=== PATIENT | female | born 1940 | race Asian ===

== ENCOUNTER 2016-11-26 18:47 | Inpatient (IN) | payer MEDICARE ==
[~2016-11-26] VITALS: Ht 157.5 cm; Wt 53.5 kg
[2016-11-26 19:15] VITALS: BP 103/75
[2016-11-26 20:31] LABS: BASOPHILS % (AUTO) 0.8 % (0.0-2.0); LYMPHOCYTES % (AUTO) 15.4 % (20.0-45.0); MEAN CORPUSCULAR HEMOGLOBIN 31.8 PG (27.0-31.0); MEAN CORPUSCULAR HGB CONC 33.5 G/DL (32.0-36.0); MEAN CORPUSCULAR VOLUME 95 FL (80-99); MEAN PLATELET VOLUME 6.2 FL (6.5-10.1); MONOCYTES % (AUTO) 8.4 % (1.0-10.0); NEUTROPHILS % (AUTO) 75.4 % (45.0-75.0); PLATELET COUNT 163 K/UL (150-450); RED BLOOD COUNT 3.82 M/UL (4.20-5.40); RED CELL DISTRIBUTION WIDTH 11.4 % (11.6-14.8)
[2016-11-26 20:34] LABS: TROPONIN I < 0.30 ng/mL (<=0.30)
[2016-11-26 20:37] LABS: ALANINE AMINOTRANSFERASE 24 U/L (3-33); ALBUMIN/GLOBULIN RATIO 0.9 (1.0-2.7); ANION GAP 18 (5-15); ASPARTATE AMINO TRANSFERASE 28 U/L (5-40); CALCIUM 8.4 mg/dL (8.6-10.2); CARBON DIOXIDE 23 mEQ/L (20-30); CHLORIDE 104 mEQ/L (98-107); CREATININE 0.6 mg/dL (0.5-0.9); HEMOLYSIS 13; POTASSIUM 3.4 mEQ/L (3.4-4.9); SODIUM 145 mEQ/L (135-145)
[2016-11-26 20:47] LABS: CKMB 5.2 ng/mL (< 3.8)
[2016-11-26 20:59] LABS: APPEARANCE,URINE SLIGHTLY CLOUDY; KETONES,URINE 2+ (NEGATIVE); LEUKOCYTE ESTERASE ,URINE 3+ (NEGATIVE); NITRITE,URINE NEGATIVE (NEGATIVE); PH,URINE 5 (4.5-8.0); PROTEIN,URINE 2+ (NEGATIVE); UROBILINOGEN,URINE 4 MG/DL (0.0-1.0)
[2016-11-26 21:18] LABS: RBC,URINE 0-2 /HPF (0 - 2)
[2016-11-26 21:19] LABS: SQUAMOUS EPITHELIAL CELL,UR FEW /LPF (NONE/OCC)
[2016-11-26 21:20] LABS: BACTERIA,URINE MODERATE /HPF; MUCUS,URINE MANY /LPF (NONE/OCC)
[2016-11-26] MEDS ORDERED: DuoNeb 0.5-3(2.5)mg/3ml neb HHN PRN (21:45)
[2016-11-26] MEDS ORDERED: Morphine Sulfate 2mg/ml Inj IVP PRN (21:45)
[2016-11-26] MEDS ORDERED: Mylanta II UD 30ml ORAL PRN (21:45)
[2016-11-26] MEDS ORDERED: LORazepam Inj 2mg/ml 1ml IV PRN (21:45)
[2016-11-26] MEDS ORDERED: Promethazine/Codeine 5ml UD ORAL PRN (21:45)
[2016-11-26] MEDS ORDERED: Nitroglycerin Subl 0.4mg tab (Bottle Of 25) SL PRN (21:45)
[2016-11-26] MEDS ORDERED: Miralax 17gm pkt ORAL PRN (21:45)
[2016-11-26] MEDS ORDERED: GLIMEPIRIDE1 MG ORAL (22:11)
[2016-11-26] MEDS ORDERED: RISPERIDONE0.5 MG PO (22:11)
[2016-11-26] MEDS ORDERED: ZOLPIDEM TARTRAT5 MG ORAL (22:11)
[2016-11-26] MEDS ORDERED: JANUMET 50-5001 EACH ORAL (22:11)
[2016-11-26] MEDS ORDERED: NAMENDA10 MG ORAL (22:11)
[2016-11-26] MEDS ORDERED: METFORMIN HCL500 M1 ORAL (22:11)
[2016-11-26] MEDS ORDERED: ANTI-DIARRHEA2 MG PO (22:11)
[2016-11-26] MEDS ORDERED: DONEPEZIL HCL5 M2 ORAL (22:11)
--- NOTE | 2016-11-26 22:59 | Emergency Room Report ---
History of Present Illness General Chief Complaint: Altered Level of Consciousness Source: Medical Record, EMS Present Illness HPI 76-year-old female presents to ED for evaluation of altered mental status. Per correction patient is more altered than usual since this morning. On arrival patient is unable to provide any additional history at this time. No reported fevers or chills. No reported chest pain or shortness of breath. No for nausea or vomiting. No aggravating relieving factors. No other associated symptoms Allergies: Coded Allergies: No Known Allergies (Unverified , 11/26/16) Patient History Past Medical History: DM, HTN Past Surgical History: none Pertinent Family History: none Social History: Denies: alcohol use, drug use, smoking Last Menstrual Period: N/A Now: No Immunizations: UTD Reviewed Nursing Documentation: PMH: Agreed, PSxH: Agreed Nursing Documentation-PMH Past Medical History: No History, Except For Hx Hypertension: Yes Hx Diabetes: Yes Review of Systems All Other Systems: limited Physical Exam Vital Signs Date Time Temp Pulse Resp B/P Pulse Ox O2 Delivery O2 Flow Rate FiO2 11/26/16 18:53 98.4 105 16 124/72 98 Room Air Sp02 EP Interpretation: reviewed, normal General Appearance: no apparent distress, non-toxic, lethargic Head: normocephalic, atraumatic Eyes: bilateral eye PERRL, bilateral eye normal inspection ENT: hearing grossly normal, normal pharynx, no angioedema, normal voice Neck: full range of motion, supple/symm/no masses Respiratory: chest non-tender, lungs clear, normal breath sounds, speaking full sentences Cardiovascular #1: regular rate, rhythm, no edema Cardiovascular #2: 2+ carotid (R), 2+ carotid (L), 2+ radial (R), 2+ radial (L) , 2+ dorsalis pedis (R), 2+ dorsalis pedis (L) Gastrointestinal: normal bowel sounds, non tender, soft, non-distended, no guarding, no rebound Rectal: deferred Genitourinary: normal inspection, no CVA tenderness Musculoskeletal: back normal, non-tender, calf tenderness Neurologic: other - ams Psychiatric: other - ams Reflexes: 3+ bicep (R), 3+ bicep (L), 3+ tricep (R), 3+ tricep (L), 3+ knee (R) , 3+ knee (L) Skin: normal color, no rash, warm/dry, well hydrated Lymphatic: no adenopathy Medical Decision Making Diagnostic Impression: Primary Impression: UTI (urinary tract infection) Qualified Codes: N39.0 - Urinary tract infection, site not specified Additional Impression: Altered level of consciousness ER Course Hospital Course 76-year-old female presenting to ED with generalized weakness Differential diagnoses include: Pneumonia, UTI, sepsis, dehydration, DE/ unstable angina Clinical course Patient placed on stretcher. On night monitor with stable vitals are ED course. After initial history and physical, I ordered labs, IV fluids, EKG, chest x-ray, blood cultures, UA. CT Head Labs - electrolytes ok, no leukocytosis, troponins negative, UA grossly positive for UTI CXR - no acute process CT head ok EKG - no ischemic changes, NSR Abx given. Case discussed with Dr Mckeon and they agreed to admit patient to their service for further care and support I feel this is a highly complex case requiring extensive working including EKG/ Rhythm strip, Xray/CT/US, Blood/urine lab work, repeat exams while in ED, and administration of strong opiates/narcotics for pain control, admission to hospital or close patient follow up. Diagnosis - UTI, ALOC Patient admitted to floor in serious condition Labs Test 11/26/16 19:45 White Blood Count 6.0 K/UL (4.8-10.8) Red Blood Count 3.82 M/UL (4.20-5.40) Hemoglobin 12.2 G/DL (12.0-16.0) Hematocrit 36.3 % (37.0-47.0) Mean Corpuscular Volume 95 FL (80-99) Mean Corpuscular Hemoglobin 31.8 PG (27.0-31.0) Mean Corpuscular Hemoglobin Concent 33.5 G/DL (32.0-36.0) Red Cell Distribution Width 11.4 % (11.6-14.8) Platelet Count 163 K/UL (150-450) Mean Platelet Volume 6.2 FL (6.5-10.1) Neutrophils (%) (Auto) 75.4 % (45.0-75.0) Lymphocytes (%) (Auto) 15.4 % (20.0-45.0) Monocytes (%) (Auto) 8.4 % (1.0-10.0) Eosinophils (%) (Auto) 0.0 % (0.0-3.0) Basophils (%) (Auto) 0.8 % (0.0-2.0) Urine Color Yellow Urine Appearance Slightly cloudy Urine pH 5 (4.5-8.0) Urine Specific [place] 1.025 (1.005-1.035) Urine Protein 2+ (NEGATIVE) Urine Glucose (UA) Negative (NEGATIVE) Urine Ketones 2+ (NEGATIVE) Urine Occult Blood 2+ (NEGATIVE) Urine Nitrite Negative (NEGATIVE) Urine Bilirubin 1+ (NEGATIVE) Urine Ictotest Urine Urobilinogen 4 MG/DL (0.0-1.0) Urine Leukocyte Esterase 3+ (NEGATIVE) Urine RBC 0-2 /HPF (0 - 2) Urine WBC 2-4 /HPF (0 - 2) Urine Squamous Epithelial Cells Few /LPF (NONE/OCC) Urine Bacteria Moderate /HPF (NONE) Urine Mucus Many /LPF (NONE/OCC) Sodium Level 145 mEQ/L (135-145) Potassium Level 3.4 mEQ/L (3.4-4.9) Chloride Level 104 mEQ/L (98-107) Carbon Dioxide Level 23 mEQ/L (20-30) Anion Gap 18 (5-15) Blood Urea Nitrogen 26 mg/dL (7-23) Creatinine 0.6 mg/dL (0.5-0.9) Estimat Glomerular Filtration Rate mL/min (>60) Glucose Level 99 mg/dL (74-106) Lactic Acid Level 1.80 mmol/L (0.66-2.22) Calcium Level 8.4 mg/dL (8.6-10.2) Total Bilirubin 0.6 mg/dL (0.0-1.2) Aspartate Amino Transf (AST/SGOT) 28 U/L (5-40) Alanine Aminotransferase (ALT/SGPT) 24 U/L (3-33) Alkaline Phosphatase 55 U/L (35-104) Total Creatine Kinase 289 U/L (26-140) Creatine Kinase MB 5.2 ng/mL (< 3.8) Creatine Kinase MB Relative Index 1.7 Troponin I < 0.30 ng/mL (<=0.30) Total Protein 7.0 g/dL (6.6-8.7) Albumin 3.4 g/dL (3.5-5.2) Globulin 3.6 g/dL Albumin/Globulin Ratio 0.9 (1.0-2.7) EKG Diagnostic Results Rate: normal Rhythm: NSR ST Segments: no acute changes ASA given to the pt in ED: No Rhythm Strip Diag. Results EP Interpretation: yes Rhythm: NSR, no PVC's, no ectopy Chest X-Ray Diagnostic Results EP Interpretation: Yes Findings: no consolidation, no effusion, no pneumothorax, no acute cardiopulmonary disease Number of Views: 1 CT/MRI/US Diagnostic Results CT/MRI/US Diagnostic Results : Imaging Test Ordered: CT head Impression no acute process Last Vital Signs Date Time Temp Pulse Resp B/P Pulse Ox O2 Delivery O2 Flow Rate FiO2 11/26/16 22:13 93 19 102/45 96 Room Air 11/26/16 19:15 100.9 Status: improved Disposition: ADMITTED INPATIENT Condition: Serious Referrals: DILAN SKAGGS M.D. (PCP) YAZMIN RUSSO M.D. Nov 26, 2016 22:59
[2016-11-27 00:31] VITALS: BP 105/59
[2016-11-27] MEDS: D5 1/2NS 1,000 ML IV SCH ×3 (00:51→17:44)
[2016-11-27 04:04] VITALS: BP 97/56
[2016-11-27 07:28] LABS: BASOPHILS % (AUTO) 0.7 % (0.0-2.0); EOSINOPHILS % (AUTO) 0.1 % (0.0-3.0); LYMPHOCYTES % (AUTO) 22.7 % (20.0-45.0); MEAN CORPUSCULAR HEMOGLOBIN 32.2 PG (27.0-31.0); MEAN CORPUSCULAR HGB CONC 34.8 G/DL (32.0-36.0); MEAN CORPUSCULAR VOLUME 92 FL (80-99); MEAN PLATELET VOLUME 7.2 FL (6.5-10.1); MONOCYTES % (AUTO) 7.7 % (1.0-10.0); NEUTROPHILS % (AUTO) 68.8 % (45.0-75.0); PLATELET COUNT 151 K/UL (150-450); RED BLOOD COUNT 3.59 M/UL (4.20-5.40); RED CELL DISTRIBUTION WIDTH 11.3 % (11.6-14.8); WHITE BLOOD COUNT 4.3 K/UL (4.8-10.8)
[2016-11-27 07:41] VITALS: BP 113/64
[2016-11-27 07:51] LABS: THYROID STIMULATING HORMONE 0.801 uIU/mL (0.300-4.500)
[2016-11-27 07:52] LABS: ALANINE AMINOTRANSFERASE 22 U/L (3-33); ANION GAP 15 (5-15); ASPARTATE AMINO TRANSFERASE 27 U/L (5-40); CALCIUM 8.5 mg/dL (8.6-10.2); CARBON DIOXIDE 24 mEQ/L (20-30); CHLORIDE 103 mEQ/L (98-107); CHOLESTEROL 100 mg/dL (< 200); CHOLESTEROL/HDL RATIO 3.4 (3.3-4.4); CREATININE 0.5 mg/dL (0.5-0.9); HEMOLYSIS 4; LDL CHOLESTEROL (CALC.) 48 mg/dL (60-99); POTASSIUM 2.9 mEQ/L (3.4-4.9); SODIUM 142 mEQ/L (135-145); TOTAL PROTEIN 6.6 g/dL (6.6-8.7)
[2016-11-27 08:14] LABS: INR 1.1 (0.9-1.1); PROTHROMBIN TIME 11.1 SEC (9.30-11.50)
[2016-11-27] MEDS: Heparin 5000 units/ml inj SUBQ SCH ×2 (08:25→20:37)
--- NOTE | 2016-11-27 09:15 | Diagnostic Imaging Report ---
Indications: Mental status Technique: Continuous helical CT imaging of the brain was performed with nonionic exposure control on a Siemens sensation [address] scanner. Axial and coronal images were reconstructed at 5 mm slice thickness and interval. CTDI volume(s): 70 mGy Total DLP: 1053 mGy-cm Findings: Comparison: None Confluent low attenuation is present throughout the bilateral periventricular and deep cerebral and white matter. Extension of low attenuation in the subcortical white matter of both frontal lobes. Ventricles, cisterns, and sulci are diffusely prominent. No evidence of mass or hemorrhage, mass effect, midline shift, hydrocephalus, or increased intracranial pressure. Bone window images are unremarkable. Mild mucoperiosteal thickening right maxillary sinus. Remainder visualized paranasal sinuses and mastoid air cells are clear. IMPRESSION: No evidence of acute intracranial pathology Bilateral white matter low attenuation likely chronic microvascular ischemic in nature Atrophy with ventriculomegaly. Normal pressure hydrocephalus must be considered. Right maxillary sinusitis. This correlates with preliminary report generated overnight by Dr. Morales. The CT scanner at [facility] is accredited by the [employer] and the scans are performed using protocols designed to limit radiation exposure to as low as reasonably achievable to attain images of sufficient resolution adequate for diagnostic evaluation.
--- NOTE | 2016-11-27 10:11 | Diagnostic Imaging Report ---
Indication: ] Technique: Single portable AP view of the chest. Findings: Comparison: None. Bones diffusely demineralized. Aortic arch mildly calcified and elongated. The extra pulmonary soft tissues, remainder of the cardiomediastinal silhouette, pulmonary vasculature and parenchyma, and pleural surfaces are unremarkable. IMPRESSION: No evidence of acute cardiopulmonary disease Aortosclerosis and probable chronic hypertensive change Osteopenia
[2016-11-27 11:59] VITALS: BP 103/58
[2016-11-27 16:00] VITALS: BP 115/66
--- NOTE | 2016-11-27 16:12 | Diagnostic Imaging Report ---
APPROVED REPORT CPT Code: 64872 CAROTID (BILATERAL) - Imaging reveals no significant plaque within the right and left extracranial carotid arteries. The Doppler spectral flow analysis is within normal limits throughout the extracranial carotid arteries bilaterally. VERTEBRAL- The right vertebral artery is within normal limits,The left vertebral artery was not well visualized.
--- NOTE | 2016-11-27 16:12 | Diagnostic Imaging Report ---
APPROVED REPORT CPT Code: 77716 BILATERAL: Imaging reveals a patent deep venous system bilaterally. There is no evidence of thrombus within the femoral, popliteal or tibial segments. The greater saphenous veins are also within normal limits. Doppler indicates normal spontaneous flow within these segments.
--- NOTE | 2016-11-27 16:58 | History and Physical ---
History of Present Illness General Date patient seen: Nov 27, 2016 Reason for Hospitalization: Altered Level of Consciousness Present Illness HPI 76-year-old female with hx of Dementia, DM, diabetes, presented to ED for evaluation of altered mental status. Per senior care patient is more altered than usual since this morning. On arrival patient to ER pt was unable to provide any additional history at this time. She was diagnosed to have Urosepsis and admitted for further care. Allergies: Coded Allergies: No Known Allergies (Unverified , 11/26/16) Medication History Scheduled Donepezil Hcl* (Donepezil Hcl*), 5 MG ORAL DAILY, (Reported) Glimepiride* (Glimepiride*), 1 MG ORAL BEFORE BREAKFAST, (Reported) Loperamide Hcl (Anti-Diarrhea), 2 MG PO PRN, (Reported) Memantine Hcl* (Namenda*), 10 MG ORAL DAILY, (Reported) Metformin Hcl* (Metformin Hcl*), 500 MG ORAL TWICE A DAY, (Reported) Risperidone (Risperidone), 0.5 MG PO BID, (Reported) Sitagliptin Phos/Metformin Hcl (Janumet 50-500 Mg Tablet), 1 TAB ORAL DAILY, ( Reported) Scheduled PRN Zolpidem Tartrate* (Zolpidem Tartrate*), 5 MG ORAL BEDTIME PRN for Insomnia, ( Reported) Patient History Healthcare decision maker sister Resuscitation status Full Code Advanced Directive on File No Past Medical/Surgical History Past Medical/Surgical History: (1) Diabetes mellitus (2) Dementia Review of Systems All Other Systems: negative except mentioned in HPI Physical Exam General Appearance: WD/WN Lines, tubes and drains: peripheral HEENT: normocephalic, atraumatic Neck: non-tender, normal alignment Respiratory/Chest: chest wall non-tender, lungs clear, normal breath sounds Cardiovascular/Chest: normal peripheral pulses, normal rate Abdomen: normal bowel sounds, non tender Genitourinary/Rectal: normal genital exam Last 24 Hour Vital Signs Date Time Temp Pulse Resp B/P Pulse Ox O2 Delivery O2 Flow Rate FiO2 11/27/16 16:00 96.8 80 20 115/66 97 Room Air 11/27/16 11:59 98.4 77 18 103/58 99 Room Air 11/27/16 07:41 97.2 81 18 113/64 97 Room Air 11/27/16 04:04 92.2 76 20 97/56 94 Room Air 11/27/16 00:31 97.7 94 20 105/59 98 Room Air 11/26/16 22:13 93 19 102/45 96 Room Air 11/26/16 19:15 100.9 103 15 103/75 99 Room Air 11/26/16 18:53 98.4 105 16 124/72 98 Room Air Intake and Output 11/26/16 11/27/16 19:00 07:00 Intake Total 1450 ml Output Total 550 ml Balance 900 ml Intake IV Total 1450 ml Output Urine Total 550 ml Laboratory Tests Test 11/26/16 19:45 11/27/16 05:20 White Blood Count 6.0 K/UL (4.8-10.8) 4.3 K/UL (4.8-10.8) L Red Blood Count 3.82 M/UL (4.20-5.40) L 3.59 M/UL (4.20-5.40) L Hemoglobin 12.2 G/DL (12.0-16.0) 11.5 G/DL (12.0-16.0) L Hematocrit 36.3 % (37.0-47.0) L 33.2 % (37.0-47.0) L Mean Corpuscular Volume 95 FL (80-99) 92 FL (80-99) Mean Corpuscular Hemoglobin 31.8 PG (27.0-31.0) H 32.2 PG (27.0-31.0) H Mean Corpuscular Hemoglobin Concent 33.5 G/DL (32.0-36.0) 34.8 G/DL (32.0-36.0) Red Cell Distribution Width 11.4 % (11.6-14.8) L 11.3 % (11.6-14.8) L Platelet Count 163 K/UL (150-450) 151 K/UL (150-450) Mean Platelet Volume 6.2 FL (6.5-10.1) L 7.2 FL (6.5-10.1) Neutrophils (%) (Auto) 75.4 % (45.0-75.0) H 68.8 % (45.0-75.0) Lymphocytes (%) (Auto) 15.4 % (20.0-45.0) L 22.7 % (20.0-45.0) Monocytes (%) (Auto) 8.4 % (1.0-10.0) 7.7 % (1.0-10.0) Eosinophils (%) (Auto) 0.0 % (0.0-3.0) 0.1 % (0.0-3.0) Basophils (%) (Auto) 0.8 % (0.0-2.0) 0.7 % (0.0-2.0) Urine Color Yellow Urine Appearance Slightly cloudy Urine pH 5 (4.5-8.0) Urine Specific [place] 1.025 (1.005-1.035) Urine Protein 2+ (NEGATIVE) H Urine Glucose (UA) Negative (NEGATIVE) Urine Ketones 2+ (NEGATIVE) H Urine Occult Blood 2+ (NEGATIVE) H Urine Nitrite Negative (NEGATIVE) Urine Bilirubin 1+ (NEGATIVE) H Urine Ictotest Urine Urobilinogen 4 MG/DL (0.0-1.0) H Urine Leukocyte Esterase 3+ (NEGATIVE) H Urine RBC 0-2 /HPF (0 - 2) Urine WBC 2-4 /HPF (0 - 2) Urine Squamous Epithelial Cells Few /LPF (NONE/OCC) Urine Bacteria Moderate /HPF (NONE) H Urine Mucus Many /LPF (NONE/OCC) H Sodium Level 145 mEQ/L (135-145) 142 mEQ/L (135-145) Potassium Level 3.4 mEQ/L (3.4-4.9) 2.9 mEQ/L (3.4-4.9) L Chloride Level 104 mEQ/L (98-107) 103 mEQ/L (98-107) Carbon Dioxide Level 23 mEQ/L (20-30) 24 mEQ/L (20-30) Anion Gap 18 (5-15) H 15 (5-15) Blood Urea Nitrogen 26 mg/dL (7-23) H 23 mg/dL (7-23) Creatinine 0.6 mg/dL (0.5-0.9) 0.5 mg/dL (0.5-0.9) Estimat Glomerular Filtration Rate mL/min (>60) mL/min (>60) Glucose Level 99 mg/dL (74-106) 100 mg/dL (74-106) Lactic Acid Level 1.80 mmol/L (0.66-2.22) Calcium Level 8.4 mg/dL (8.6-10.2) L 8.5 mg/dL (8.6-10.2) L Total Bilirubin 0.6 mg/dL (0.0-1.2) 0.6 mg/dL (0.0-1.2) Aspartate Amino Transf (AST/SGOT) 28 U/L (5-40) 27 U/L (5-40) Alanine Aminotransferase (ALT/SGPT) 24 U/L (3-33) 22 U/L (3-33) Alkaline Phosphatase 55 U/L (35-104) 50 U/L (35-104) Total Creatine Kinase 289 U/L (26-140) H Creatine Kinase MB 5.2 ng/mL (< 3.8) H Creatine Kinase MB Relative Index 1.7 Troponin I < 0.30 ng/mL (<=0.30) Total Protein 7.0 g/dL (6.6-8.7) 6.6 g/dL (6.6-8.7) Albumin 3.4 g/dL (3.5-5.2) L 3.3 g/dL (3.5-5.2) L Globulin 3.6 g/dL 3.3 g/dL Albumin/Globulin Ratio 0.9 (1.0-2.7) L 1.0 (1.0-2.7) Prothrombin Time 11.1 SEC (9.30-11.50) Prothromb Time International Ratio 1.1 (0.9-1.1) Activated Partial Thromboplast Time 28 SEC (23-33) Triglycerides Level 115 mg/dL (< 150) Cholesterol Level 100 mg/dL (< 200) LDL Cholesterol 48 mg/dL (60-99) L HDL Cholesterol 29 mg/dL (> 60) Cholesterol/HDL Ratio 3.4 (3.3-4.4) Thyroid Stimulating Hormone (TSH) 0.801 uIU/mL (0.300-4.500) Height (Feet): 5 Height (Inches): 2.00 Weight (Pounds): 118 Medications Current Medications Medications (Trade) Dose Ordered Sig/[place] Route PRN Reason Start Time Stop Time Status Last Admin Dose Admin Acetaminophen (Tylenol) 650 mg Q4H PRN ORAL fever 11/26/16 21:45 12/26/16 21:44 Al Hydroxide/Mg Hydroxide (Mylanta II) 30 ml Q6H PRN ORAL dyspepsia 11/26/16 21:45 12/26/16 21:44 Albuterol/ Ipratropium (DuoNeb 0.5-3(2.5)mg/3ml) 3 ml Q4H PRN HHN Shortness of Breath 11/26/16 21:45 12/01/16 21:44 Clonidine HCl (Catapres) 0.1 mg Q4H PRN ORAL For SBP>160 11/26/16 21:45 12/26/16 21:44 Dextrose (Dextrose 50%) STAT PRN IV Hypoglycemia 11/26/16 21:45 12/26/16 21:44 Dextrose/Sodium Chloride (D5 0.45% NS) 1,000 ml @ 50 mls/hr Q20H IV 11/26/16 17:50 12/26/16 17:49 11/27/16 00:51 Heparin Sodium (Porcine) (Heparin 5000 units/ml) 5,000 units EVERY 12 HOURS SUBQ 11/27/16 09:00 12/27/16 08:59 11/27/16 08:25 Lorazepam (Ativan 2mg/ml 1ml) 0.5 mg Q4H PRN IV For Anxiety 11/26/16 21:45 12/03/16 21:44 Morphine Sulfate (Morphine Sulfate) 1 mg Q4H PRN IVP For Pain 7-10 11/26/16 21:45 12/03/16 21:44 Nitroglycerin (Ntg) 0.4 mg Q5M X 3 DOSES PRN SL Prn Chest Pain 11/26/16 21:45 12/26/16 21:44 Ondansetron HCl (Zofran) 4 mg Q6H PRN IVP Nausea & Vomiting 11/26/16 21:45 12/26/16 21:44 Polyethylene Glycol (Miralax) 17 gm HSPRN PRN ORAL Constipation 11/26/16 21:45 12/26/16 21:44 Promethazine HCl/ Codeine (Phenergan with Codeine) 5 ml Q4H PRN ORAL For Cough 11/26/16 21:45 12/26/16 21:44 Temazepam (Restoril) 15 mg HSPRN PRN ORAL Insomnia 11/26/16 21:45 12/03/16 21:44 Assessment/Plan Problem List: (1) Acute encephalopathy ICD Codes: G93.40 - Encephalopathy, unspecified SNOMED: 4312097 (2) Sepsis ICD Codes: A41.9 - Sepsis, unspecified organism SNOMED: 38053199 (3) UTI (urinary tract infection) ICD Codes: N39.0 - Urinary tract infection, site not specified SNOMED: 95049708 (4) Dementia ICD Codes: F03.90 - Unspecified dementia without behavioral disturbance SNOMED: 19859854 (5) Diabetes mellitus ICD Codes: E11.9 - Type 2 diabetes mellitus without complications SNOMED: 25882516 Assessment/Plan iv antibiotics sliding scale diabetic diet dvt prophylaxis check urine and blood cultures. RONN PALMER Nov 27, 2016 16:58
--- NOTE | 2016-11-27 18:52 | Neurology Progress Note ---
Objective Physical Exam Last Vital Signs Date Time Temp Pulse Resp B/P Pulse Ox O2 Delivery O2 Flow Rate FiO2 11/27/16 16:00 96.8 80 20 115/66 97 Room Air Laboratory Tests Test 11/26/16 19:45 11/27/16 05:20 White Blood Count 6.0 K/UL (4.8-10.8) 4.3 K/UL (4.8-10.8) L Red Blood Count 3.82 M/UL (4.20-5.40) L 3.59 M/UL (4.20-5.40) L Hemoglobin 12.2 G/DL (12.0-16.0) 11.5 G/DL (12.0-16.0) L Hematocrit 36.3 % (37.0-47.0) L 33.2 % (37.0-47.0) L Mean Corpuscular Volume 95 FL (80-99) 92 FL (80-99) Mean Corpuscular Hemoglobin 31.8 PG (27.0-31.0) H 32.2 PG (27.0-31.0) H Mean Corpuscular Hemoglobin Concent 33.5 G/DL (32.0-36.0) 34.8 G/DL (32.0-36.0) Red Cell Distribution Width 11.4 % (11.6-14.8) L 11.3 % (11.6-14.8) L Platelet Count 163 K/UL (150-450) 151 K/UL (150-450) Mean Platelet Volume 6.2 FL (6.5-10.1) L 7.2 FL (6.5-10.1) Neutrophils (%) (Auto) 75.4 % (45.0-75.0) H 68.8 % (45.0-75.0) Lymphocytes (%) (Auto) 15.4 % (20.0-45.0) L 22.7 % (20.0-45.0) Monocytes (%) (Auto) 8.4 % (1.0-10.0) 7.7 % (1.0-10.0) Eosinophils (%) (Auto) 0.0 % (0.0-3.0) 0.1 % (0.0-3.0) Basophils (%) (Auto) 0.8 % (0.0-2.0) 0.7 % (0.0-2.0) Urine Color Yellow Urine Appearance Slightly cloudy Urine pH 5 (4.5-8.0) Urine Specific [place] 1.025 (1.005-1.035) Urine Protein 2+ (NEGATIVE) H Urine Glucose (UA) Negative (NEGATIVE) Urine Ketones 2+ (NEGATIVE) H Urine Occult Blood 2+ (NEGATIVE) H Urine Nitrite Negative (NEGATIVE) Urine Bilirubin 1+ (NEGATIVE) H Urine Ictotest Urine Urobilinogen 4 MG/DL (0.0-1.0) H Urine Leukocyte Esterase 3+ (NEGATIVE) H Urine RBC 0-2 /HPF (0 - 2) Urine WBC 2-4 /HPF (0 - 2) Urine Squamous Epithelial Cells Few /LPF (NONE/OCC) Urine Bacteria Moderate /HPF (NONE) H Urine Mucus Many /LPF (NONE/OCC) H Sodium Level 145 mEQ/L (135-145) 142 mEQ/L (135-145) Potassium Level 3.4 mEQ/L (3.4-4.9) 2.9 mEQ/L (3.4-4.9) L Chloride Level 104 mEQ/L (98-107) 103 mEQ/L (98-107) Carbon Dioxide Level 23 mEQ/L (20-30) 24 mEQ/L (20-30) Anion Gap 18 (5-15) H 15 (5-15) Blood Urea Nitrogen 26 mg/dL (7-23) H 23 mg/dL (7-23) Creatinine 0.6 mg/dL (0.5-0.9) 0.5 mg/dL (0.5-0.9) Estimat Glomerular Filtration Rate mL/min (>60) mL/min (>60) Glucose Level 99 mg/dL (74-106) 100 mg/dL (74-106) Lactic Acid Level 1.80 mmol/L (0.66-2.22) Calcium Level 8.4 mg/dL (8.6-10.2) L 8.5 mg/dL (8.6-10.2) L Total Bilirubin 0.6 mg/dL (0.0-1.2) 0.6 mg/dL (0.0-1.2) Aspartate Amino Transf (AST/SGOT) 28 U/L (5-40) 27 U/L (5-40) Alanine Aminotransferase (ALT/SGPT) 24 U/L (3-33) 22 U/L (3-33) Alkaline Phosphatase 55 U/L (35-104) 50 U/L (35-104) Total Creatine Kinase 289 U/L (26-140) H Creatine Kinase MB 5.2 ng/mL (< 3.8) H Creatine Kinase MB Relative Index 1.7 Troponin I < 0.30 ng/mL (<=0.30) Total Protein 7.0 g/dL (6.6-8.7) 6.6 g/dL (6.6-8.7) Albumin 3.4 g/dL (3.5-5.2) L 3.3 g/dL (3.5-5.2) L Globulin 3.6 g/dL 3.3 g/dL Albumin/Globulin Ratio 0.9 (1.0-2.7) L 1.0 (1.0-2.7) Prothrombin Time 11.1 SEC (9.30-11.50) Prothromb Time International Ratio 1.1 (0.9-1.1) Activated Partial Thromboplast Time 28 SEC (23-33) Triglycerides Level 115 mg/dL (< 150) Cholesterol Level 100 mg/dL (< 200) LDL Cholesterol 48 mg/dL (60-99) L HDL Cholesterol 29 mg/dL (> 60) Cholesterol/HDL Ratio 3.4 (3.3-4.4) Thyroid Stimulating Hormone (TSH) 0.801 uIU/mL (0.300-4.500) Impression/Recommendations Problems: (1) New onset of verbal unresponciveness r/o sepsis r/o UTI (2) senile demenria, advanced (3) Polypharmacy (4) Diabetes mellitus Status: unchanged Recommendations # [id number] ROLDAN DOUGLAS Nov 27, 2016 18:52
[2016-11-27 19:00] VITALS: BP 107/73
[2016-11-28] VITALS: BP 112/61
--- NOTE | 2016-11-28 01:18 | Consultation ---
DATE OF CONSULTATION: 11/27/2016 NEUROLOGIC CONSULTATION: REQUESTING PHYSICIAN: Demetrius Mckeon M.D. PRIMARY PHYSICIAN: Partha Cárdenas M.D. HISTORY OF PRESENT ILLNESS: The patient is a 76-year-old female, resident of [facility] seen in care facility. Her baseline being able to ambulate and speak, but rather confused, noticed becoming increasingly nonverbal, and not following commands. Paramedics were called to the scene. Her vital signs in the field were stable with blood pressure 111/64, heart rate 114, respiration 18, and pulse oximetry 96%. The patient was brought to the emergency room and being noncommunicative while her vital signs remained unchanged. Her chest x-ray revealed no acute process. EKG, there were no ischemic changes and normal sinus rhythm. Her lab work included CBC study mild anemia. Chemistry panel with anion gap of 18, BUN of 26, calcium 8.4, and elevated CK of 289. Normal TSH, lipid panel, and lactic acid. Urinalysis, 2+ protein, 3+ leukocyte esterase, and 2 to 4 WBCs. The patient had a CAT scan of the brain done and this revealed bilateral white matter low attenuation, consistent with chronic microvascular ischemic changes. There is atrophy with normal pressure hydrocephalus to be considered right maxillary sinus noted. Venous Duplex lower extremity, no DVT and duplex of both upper extremities noted. Since admission to present, there was no changes in her status. The patient described as being nonverbal and noncommunicative. PAST MEDICAL HISTORY: The patient has a history of progressive dementia, behavioral abnormalities, history of diabetes, and hypertension. MEDICATIONS: Her treatment now include donepezil 5 mg daily, , Namenda 10 mg daily, metformin, Risperdal 0.5 mg b.i.d., and Janumet. ALLERGIES: None reported. SOCIAL HISTORY: Resident of nursing facility. She is a . Probably Maori speaking. FAMILY HISTORY: Noncontributory. REVIEW OF SYSTEMS: Unable to obtain due to the patient's status. PHYSICAL EXAMINATION: GENERAL: This is a well-developed, pale, ill-appearing elderly female, lying comfortably in bed with eyes open. VITAL SIGNS: Stable. She is afebrile. HEENT: Head normocephalic. There is no evidence of injuries. Eyes, ears, and throat are clear . NECK: Supple. Her neck is rigid in all directions. MUSCULOSKELETAL: left leg. No evidence of trauma. PERIPHERAL PULSES: A 1+ symmetric. MENTAL STATUS: The patient has brief eye contact. She does not follow any instructions and remained nonverbal. CRANIAL NERVES: Cranial Nerves II: Pupils both responding to light and accommodation. Extraocular movement intact. No nystagmus. CRANIAL NERVES V: Normal corneal responses. CRANIAL NERVES VII: No gross asymmetry . CRANIAL NERVES VIII: Probably grossly normal. CRANIAL NERVES IX THROUGH XII: Reduced gag response. MOTOR EXAMINATION: Diffuse rigidity, able to lift both upper extremities against gravity briefly. Able to move both feet, but would not comply with lifting or bending lower extremities. Deep reflexes depressed bilaterally. Plantar response is mute. No pathological responses. SENSORY EXAMINATION: No response to pin stimulation. IMPRESSION: 1. The patient is a 76-year-old female was appeared to be senile dementia, now presenting with exacerbation, verbal unresponsiveness, rule out underlying infection, rule out metabolic derangement contributing to mental status change. 2. Diabetes type 2. 3. Hypertension. DISCUSSION: The patient who reportedly was able to speak being quite confused become nonverbal. There is no lateralizing deficits to suspect stroke, seizures, meningitis, or encephalitis. The patient has signs of UTI dehydration, renal insufficiency, and anemia. The patient has multiple medications. I will hold unessential treatment. Start on IV fluids and antibiotics as per attending. Hold sedating medication. We will follow with you. Thank you for allowing me to see this interesting patient in neurological consultation . Shashank Butler M.D. DR: Ryanne JOB#: [id number] CC:
[2016-11-28 04:00] VITALS: BP 113/56
[2016-11-28 07:38] VITALS: BP 112/61
[2016-11-28] MEDS: Heparin 5000 units/ml inj SUBQ SCH ×2 (08:43→21:00)
[2016-11-28 11:17] VITALS: BP 103/56
--- NOTE | 2016-11-28 13:24 | Neurology Progress Note ---
Interim History Interim History ROS Limited/Unobtainable: Yes Complaints: mute Events: awake noncommunicating Objective Physical Exam Last Vital Signs Date Time Temp Pulse Resp B/P Pulse Ox O2 Delivery O2 Flow Rate FiO2 11/28/16 11:17 97.3 76 18 103/56 99 Room Air General: well developed, no acute distress, other - cachectic Neurologic Exam Mental Status: awake, other - nonverbal not following commands stays still Speech: other - mute Language: other Cranial Nerve II: fundus normal, visual rodriguez, no papilledema Cranial Nerves III, IV, : PERRLA, EOMI, pupils Cranial Nerve V: normal facial sensations, temporales function normal, masseters function normal, pterygoids function normal Cranial Nerve VII: no facial asymmetry, normal facial expressions Cranial Nerve VIII: no nystagmus Cranial Nerve IX: other - poor gag Cranial Nerve X: no voice hoarseness Cranial Nerve XI: SCM symmetric, trapezii function normal Cranial Nerve XII: tongue midline, no tongue atrophy/fasciculations Motor System: strength 5/5, no involuntary movement, no muscle wasting, other - diffuse rigidity Sensory: other Coordination: other Deep Tendon Reflexes: 0 ankle (L), 0 ankle (R), 0 bicep (L), 0 bicep (R), 0 brachioradialis (L), 0 brachioradialis (R), 0 knee (L), 0 knee (R), 0 tricep (L) , 0 tricep (R) Reflexes: mute plantar (L), mute plantar (R) Impression/Recommendations Problems: (1) New onset of verbal unresponciveness r/o sepsis r/o UTI (2) senile demenria, advanced (3) Polypharmacy (4) Diabetes mellitus Status: unchanged Recommendations # [id number] d/c unessential meds ROLDAN DOUGLAS Nov 28, 2016 13:24
[2016-11-28 16:15] VITALS: BP 110/64
[2016-11-28] MEDS: D5 1/2NS 1,000 ML IV SCH (18:40)
[2016-11-28 20:00] VITALS: BP 118/63
--- NOTE | 2016-11-28 23:24 | Pulmonology Progress Note ---
Assessment/Plan Problems: (1) Acute encephalopathy (2) Sepsis (3) UTI (urinary tract infection) (4) Dementia (5) Diabetes mellitus Assessment/Plan Assessment/Plan iv antibiotics sliding scale diabetic diet dvt prophylaxis check urine and blood cultures. Subjective ROS Limited/Unobtainable: Yes Constitutional: Reports: anorexia, fatigue Genitourinary: Reports: dysuria, frequency, hematuria, nocturia, urgency Neurologic: Reports: confusion, weakness Allergies: Coded Allergies: No Known Allergies (Unverified , 11/26/16) Objective Last 24 Hour Vital Signs Date Time Temp Pulse Resp B/P Pulse Ox O2 Delivery O2 Flow Rate FiO2 11/28/16 20:00 98.2 85 20 118/63 95 Room Air 11/28/16 19:05 89 18 Room Air 11/28/16 16:15 98.7 80 19 110/64 96 Room Air 11/28/16 11:17 97.3 76 18 103/56 99 Room Air 11/28/16 07:38 97.9 79 18 112/61 97 Room Air 11/28/16 07:25 80 18 Room Air 11/28/16 04:00 97.2 87 19 113/56 95 Room Air 11/28/16 00:00 97.2 77 21 112/61 97 Room Air Intake and Output 11/27/16 11/28/16 19:00 07:00 Intake Total 550 ml 500 ml Output Total 200 ml 600 ml Balance 350 ml -100 ml Intake IV Total 550 ml 500 ml Output Urine Total 200 ml 600 ml General Appearance: no acute distress HEENT: normocephalic, atraumatic, PERRL Respiratory/Chest: chest wall non-tender, decreased breath sounds, accessory muscle use Breasts: no masses Cardiovascular: normal peripheral pulses, normal rate, regular rhythm, no JVD Abdomen: normal bowel sounds, soft, non tender, no organomegaly Genitourinary: normal external genitalia Extremities: no cyanosis 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: 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 normal, responsive, disoriented Microbiology Date/Time Source Procedure Growth Status 11/26/16 19:45 Blood Blood Culture - Preliminary NO GROWTH AFTER 24 HOURS Resulted 11/26/16 19:35 Blood Blood Culture - Preliminary NO GROWTH AFTER 24 HOURS Resulted 11/26/16 19:45 Urine,Clean Catch Urine Culture - Preliminary Gram Negative Bacillus 1 Resulted Current Medications Medications (Trade) Dose Ordered Sig/Valdez Route PRN Reason Start Time Stop Time Status Last Admin Dose Admin Acetaminophen (Tylenol) 650 mg Q4H PRN ORAL fever 11/26/16 21:45 12/26/16 21:44 Al Hydroxide/Mg Hydroxide (Mylanta II) 30 ml Q6H PRN ORAL dyspepsia 11/26/16 21:45 12/26/16 21:44 Albuterol/ Ipratropium (DuoNeb 0.5-3(2.5)mg/3ml) 3 ml Q4H PRN HHN Shortness of Breath 11/26/16 21:45 12/01/16 21:44 Clonidine HCl (Catapres) 0.1 mg Q4H PRN ORAL For SBP>160 11/26/16 21:45 12/26/16 21:44 Dextrose (Dextrose 50%) STAT PRN IV Hypoglycemia 11/26/16 21:45 12/26/16 21:44 Dextrose/Sodium Chloride (D5 0.45% NS) 1,000 ml @ 50 mls/hr Q20H IV 11/26/16 17:50 12/26/16 17:49 11/28/16 18:40 Heparin Sodium (Porcine) (Heparin 5000 units/ml) 5,000 units EVERY 12 HOURS SUBQ 11/27/16 09:00 12/27/16 08:59 11/28/16 08:43 Lorazepam (Ativan 2mg/ml 1ml) 0.5 mg Q4H PRN IV For Anxiety 11/26/16 21:45 12/03/16 21:44 Morphine Sulfate (Morphine Sulfate) 1 mg Q4H PRN IVP For Pain 7-11/26/16 21:45 12/03/16 21:44 Nitroglycerin (Ntg) 0.4 mg Q5M X 3 DOSES PRN SL Prn Chest Pain 11/26/16 21:45 12/26/16 21:44 Ondansetron HCl (Zofran) 4 mg Q6H PRN IVP Nausea & Vomiting 11/26/16 21:45 12/26/16 21:44 Polyethylene Glycol (Miralax) 17 gm HSPRN PRN ORAL Constipation 11/26/16 21:45 12/26/16 21:44 Promethazine HCl/ Codeine (Phenergan with Codeine) 5 ml Q4H PRN ORAL For Cough 11/26/16 21:45 12/26/16 21:44 Temazepam (Restoril) 15 mg HSPRN PRN ORAL Insomnia 11/26/16 21:45 12/03/16 21:44 RONN PALMER Nov 28, 2016 23:24
[2016-11-29] VITALS: BP 121/64
[2016-11-29 04:00] VITALS: BP 115/55
[2016-11-29 08:00] VITALS: BP 106/66
[2016-11-29] MEDS: Heparin 5000 units/ml inj SUBQ SCH ×2 (09:00→21:25)
[2016-11-29 12:00] VITALS: BP 109/70
[2016-11-29 16:00] VITALS: BP 115/68
[2016-11-29 19:00] VITALS: BP 122/67
[2016-11-29] MEDS ORDERED: D5 1/2NS 1000ml IV ONE (21:16)
[2016-11-29] MEDS ORDERED: Tubing IV Secondary IV ONE (21:16)
--- NOTE | 2016-11-30 00:04 | Pulmonology Progress Note ---
Assessment/Plan Problems: (1) Acute encephalopathy (2) Sepsis (3) UTI (urinary tract infection) (4) Dementia (5) Diabetes mellitus Assessment/Plan Assessment/Plan iv antibiotics sliding scale diabetic diet dvt prophylaxis check urine and blood cultures. Subjective ROS Limited/Unobtainable: Yes Constitutional: Reports: anorexia, chills, fatigue Genitourinary: Reports: frequency, hematuria, nocturia, urgency Neurologic: Reports: confusion, weakness Allergies: Coded Allergies: No Known Allergies (Unverified , 11/26/16) Objective Last 24 Hour Vital Signs Date Time Temp Pulse Resp B/P Pulse Ox O2 Delivery O2 Flow Rate FiO2 11/29/16 19:00 97.5 100 20 122/67 97 Room Air 11/29/16 19:00 88 16 Room Air 11/29/16 16:00 96.8 79 20 115/68 98 Room Air 11/29/16 12:00 97.9 77 19 109/70 98 Room Air 11/29/16 09:42 85 18 Room Air 11/29/16 08:00 98.8 71 18 106/66 97 Room Air 11/29/16 04:00 97.7 74 18 115/55 97 Room Air Intake and Output 11/29/16 11/30/16 18:59 06:59 Intake Total 550 ml 500 ml Output Total 175 ml 1000 ml Balance 375 ml -500 ml Intake Oral 400 ml IV Total 550 ml 100 ml Output Urine Total 175 ml 1000 ml # Bowel Movements 2 General Appearance: no acute distress HEENT: normocephalic, atraumatic, anicteric, PERRL Respiratory/Chest: chest wall non-tender, decreased breath sounds, accessory muscle use, rhonchi Breasts: no masses Cardiovascular: normal peripheral pulses, normal rate, regular rhythm, no JVD Abdomen: normal bowel sounds, soft, non tender, no organomegaly Genitourinary: normal external genitalia Extremities: no cyanosis Skin: no rash 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, responsive, disoriented Current Medications Medications (Trade) Dose Ordered Sig/Valdez Route PRN Reason Start Time Stop Time Status Last Admin Dose Admin Acetaminophen (Tylenol) 650 mg Q4H PRN ORAL fever 11/26/16 21:45 12/26/16 21:44 Al Hydroxide/Mg Hydroxide (Mylanta II) 30 ml Q6H PRN ORAL dyspepsia 11/26/16 21:45 12/26/16 21:44 Albuterol/ Ipratropium (DuoNeb 0.5-3(2.5)mg/3ml) 3 ml Q4H PRN HHN Shortness of Breath 11/26/16 21:45 12/01/16 21:44 Clonidine HCl (Catapres) 0.1 mg Q4H PRN ORAL For SBP>160 11/26/16 21:45 12/26/16 21:44 Dextrose (Dextrose 50%) STAT PRN IV Hypoglycemia 11/26/16 21:45 12/26/16 21:44 Dextrose/Sodium Chloride (D5 0.45% NS) 1,000 ml @ 50 mls/hr Q20H IV 11/26/16 17:50 12/26/16 17:49 11/28/16 18:40 Heparin Sodium (Porcine) (Heparin 5000 units/ml) 5,000 units EVERY 12 HOURS SUBQ 11/27/16 09:00 12/27/16 08:59 11/29/16 21:25 Lorazepam (Ativan 2mg/ml 1ml) 0.5 mg Q4H PRN IV For Anxiety 11/26/16 21:45 12/03/16 21:44 Morphine Sulfate (Morphine Sulfate) 1 mg Q4H PRN IVP For Pain 04-2811/26/16 21:45 12/03/16 21:44 Nitroglycerin (Ntg) 0.4 mg Q5M X 3 DOSES PRN SL Prn Chest Pain 11/26/16 21:45 12/26/16 21:44 Ondansetron HCl (Zofran) 4 mg Q6H PRN IVP Nausea & Vomiting 11/26/16 21:45 12/26/16 21:44 Polyethylene Glycol (Miralax) 17 gm HSPRN PRN ORAL Constipation 11/26/16 21:45 12/26/16 21:44 Promethazine HCl/ Codeine (Phenergan with Codeine) 5 ml Q4H PRN ORAL For Cough 11/26/16 21:45 12/26/16 21:44 Temazepam (Restoril) 15 mg HSPRN PRN ORAL Insomnia 11/26/16 21:45 12/03/16 21:44 RONN PALMER Nov 30, 2016 00:04
[2016-11-30 00:26] VITALS: BP 102/55
[2016-11-30] MEDS: D5 1/2NS 1,000 ML IV SCH ×2 (01:50→09:59)
[2016-11-30 04:13] VITALS: BP 108/57
[2016-11-30 07:19] LABS: BASOPHILS % (AUTO) 0.7 % (0.0-2.0); EOSINOPHILS % (AUTO) 0.2 % (0.0-3.0); LYMPHOCYTES % (AUTO) 30.2 % (20.0-45.0); MEAN CORPUSCULAR HEMOGLOBIN 31.2 PG (27.0-31.0); MEAN CORPUSCULAR HGB CONC 34.9 G/DL (32.0-36.0); MEAN CORPUSCULAR VOLUME 90 FL (80-99); MEAN PLATELET VOLUME 8.4 FL (6.5-10.1); MONOCYTES % (AUTO) 8.2 % (1.0-10.0); NEUTROPHILS % (AUTO) 60.6 % (45.0-75.0); PLATELET COUNT 128 K/UL (150-450); RED BLOOD COUNT 3.72 M/UL (4.20-5.40); RED CELL DISTRIBUTION WIDTH 10.6 % (11.6-14.8); WHITE BLOOD COUNT 4.5 K/UL (4.8-10.8)
[2016-11-30 07:25] LABS: ANION GAP 17 (5-15); CALCIUM 8.3 mg/dL (8.6-10.2); CARBON DIOXIDE 23 mEQ/L (20-30); CHLORIDE 103 mEQ/L (98-107); CREATININE 0.5 mg/dL (0.5-0.9); HEMOLYSIS 4; POTASSIUM 2.8 mEQ/L (3.4-4.9); SODIUM 143 mEQ/L (135-145)
[2016-11-30 08:11] VITALS: BP 118/69
[2016-11-30] MEDS: Heparin 5000 units/ml inj SUBQ SCH ×2 (08:21→20:49)
[2016-11-30 11:26] VITALS: BP 99/53
[2016-11-30] MEDS: D5 1/2NS w/KCl 40meq 1000ml 1,000 ML IV SCH (14:10)
--- NOTE | 2016-11-30 15:21 | Cardiology Report ---
APPROVED REPORT EXAM: Two-dimensional and M-mode echocardiogram with Doppler and color Doppler. INDICATION Left ventricular function M-Mode DIMENSIONS IVSd0.8 (0.7-1.1cm)Left Atrium (MM)3.4 (1.6-4.0cm) LVDd3.7 (3.5-5.6cm)Aortic Root2.3 (2.0-3.7cm) PWd0.7 (0.7-1.1cm)Aortic Cusp Exc.1.9 (1.5-2.0cm) LVDs2.6 (2.5-4.0cm) PWs0.9 cm Normal left ventricular chamber size, systolic function and wall motion. Left ventricular ejection fraction estimated to be 60-65%. No evidence of left ventricular hypertrophy. Anterior Echo-free space, may be due to pericardial fat or effusion. All other cardiac chamber sizes are within normal limits. Focal aortic valve sclerosis with adequate cusp excursion Thickened mitral valve leaflets with normal excursion. Mild mitral annulus and aortic root calcification. Pulmonic valve not well visualized. Normal tricuspid valve structure. IVC is normal in size with physiologic collapse. A color flow and spectral Doppler study was performed and revealed: No aortic regurgitation. No mitral regurgitation. Left ventricular diastolic dysfunction grade 1. No tricuspid regurgitation.
[2016-11-30 16:00] VITALS: BP 124/69
[2016-11-30 20:00] VITALS: BP 138/76
--- NOTE | 2016-11-30 23:22 | Pulmonology Progress Note ---
Assessment/Plan Problems: (1) Acute encephalopathy (2) Sepsis (3) UTI (urinary tract infection) (4) Dementia (5) Diabetes mellitus Assessment/Plan Assessment/Plan iv antibiotics sliding scale diabetic diet dvt prophylaxis check urine and blood cultures. Subjective ROS Limited/Unobtainable: Yes Constitutional: Reports: anorexia, fatigue Genitourinary: Reports: frequency, nocturia, urgency Neurologic: Reports: confusion, weakness Allergies: Coded Allergies: No Known Allergies (Unverified , 11/26/16) Objective Last 24 Hour Vital Signs Date Time Temp Pulse Resp B/P Pulse Ox O2 Delivery O2 Flow Rate FiO2 11/30/16 20:39 81 16 Room Air 11/30/16 20:00 98.1 87 21 138/76 98 Room Air 11/30/16 16:00 97.7 77 19 124/69 97 Room Air 11/30/16 11:26 98.0 78 20 99/53 97 Room Air 11/30/16 08:21 69 14 Room Air 11/30/16 08:11 98.4 77 20 118/69 95 Room Air 11/30/16 04:13 98.3 81 18 108/57 94 Room Air 11/30/16 00:26 97.4 86 17 102/55 97 Room Air Intake and Output 11/29/16 11/30/16 19:00 07:00 Intake Total 600 ml 850 ml Output Total 175 ml 1500 ml Balance 425 ml -650 ml Intake Oral 400 ml IV Total 600 ml 50 ml Other 400 ml Output Urine Total 175 ml 1500 ml # Bowel Movements 2 1 General Appearance: no acute distress HEENT: normocephalic, atraumatic, PERRL Respiratory/Chest: decreased breath sounds, accessory muscle use Breasts: no masses Cardiovascular: normal peripheral pulses, normal rate, regular rhythm Abdomen: normal bowel sounds, soft, non tender, no organomegaly Genitourinary: normal external genitalia Extremities: no cyanosis Skin: no rash 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: 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 grossly normal, responsive, disoriented, depressed affect Laboratory Tests 11/30/16 04:40: White Blood Count 4.5L, Red Blood Count 3.72L, Hemoglobin 11.6L, Hematocrit 33.3L, Mean Corpuscular Volume 90, Mean Corpuscular Hemoglobin 31.2H, Mean Corpuscular Hemoglobin Concent 34.9, Red Cell Distribution Width 10.6L, Platelet Count 128L, Mean Platelet Volume 8.4, Neutrophils (%) (Auto) 60.6, Lymphocytes (%) (Auto) 30.2, Monocytes (%) (Auto) 8.2, Eosinophils (%) (Auto) 0.2, Basophils (%) (Auto) 0.7, Sodium Level 143, Potassium Level 2.8L, Chloride Level 103, Carbon Dioxide Level 23, Anion Gap 17H, Blood Urea Nitrogen 14, Creatinine 0.5, Estimat Glomerular Filtration Rate , Glucose Level 139H, Calcium Level 8.3L Current Medications Medications (Trade) Dose Ordered Sig/Valdez Route PRN Reason Start Time Stop Time Status Last Admin Dose Admin Acetaminophen (Tylenol) 650 mg Q4H PRN ORAL fever 11/26/16 21:45 12/26/16 21:44 Al Hydroxide/Mg Hydroxide (Mylanta II) 30 ml Q6H PRN ORAL dyspepsia 11/26/16 21:45 12/26/16 21:44 Albuterol/ Ipratropium (DuoNeb 0.5-3(2.5)mg/3ml) 3 ml Q4H PRN HHN Shortness of Breath 11/26/16 21:45 12/01/16 21:44 Clonidine HCl (Catapres) 0.1 mg Q4H PRN ORAL For SBP>160 11/26/16 21:45 12/26/16 21:44 Dextrose (Dextrose 50%) STAT PRN IV Hypoglycemia 11/26/16 21:45 12/26/16 21:44 Dextrose/ Electrolytes (D5 0.45%NS w/ KCl 40meq 1000ml) 1,000 ml @ 50 mls/hr Q20H IV 11/30/16 17:50 12/30/16 17:49 11/30/16 14:10 Heparin Sodium (Porcine) (Heparin 5000 units/ml) 5,000 units EVERY 12 HOURS SUBQ 11/27/16 09:00 12/27/16 08:59 11/29/16 21:25 Lorazepam (Ativan 2mg/ml 1ml) 0.5 mg Q4H PRN IV For Anxiety 11/26/16 21:45 12/03/16 21:44 Morphine Sulfate (Morphine Sulfate) 1 mg Q4H PRN IVP For Pain 7-10 11/26/16 21:45 12/03/16 21:44 Nitroglycerin (Ntg) 0.4 mg Q5M X 3 DOSES PRN SL Prn Chest Pain 11/26/16 21:45 12/26/16 21:44 Ondansetron HCl (Zofran) 4 mg Q6H PRN IVP Nausea & Vomiting 11/26/16 21:45 12/26/16 21:44 Polyethylene Glycol (Miralax) 17 gm HSPRN PRN ORAL Constipation 11/26/16 21:45 12/26/16 21:44 Promethazine HCl/ Codeine 5 ml 5 ml Q4H PRN ORAL For Cough 11/26/16 21:45 12/26/16 21:44 Temazepam (Restoril) 15 mg HSPRN PRN ORAL Insomnia 11/26/16 21:45 12/03/16 21:44 RONN PALMER Nov 30, 2016 23:22
[2016-12-01 00:16] VITALS: BP 106/57
[2016-12-01 04:10] VITALS: BP 102/52
[2016-12-01 08:00] VITALS: BP 97/58
[2016-12-01] MEDS: Heparin 5000 units/ml inj SUBQ SCH ×2 (08:36→20:00)
[2016-12-01 12:00] VITALS: BP 104/60
[2016-12-01] MEDS: D5 1/2NS w/KCl 40meq 1000ml 1,000 ML IV SCH (12:59)
--- NOTE | 2016-12-01 16:23 | Pulmonology Progress Note ---
Assessment/Plan Problems: (1) Acute encephalopathy (2) Sepsis (3) UTI (urinary tract infection) (4) Dementia (5) Diabetes mellitus Assessment/Plan Assessment/Plan iv antibiotics sliding scale diabetic diet dvt prophylaxis check urine and blood cultures. Subjective ROS Limited/Unobtainable: Yes Constitutional: Reports: anorexia, chills, fatigue Neurologic: Reports: confusion, weakness Allergies: Coded Allergies: No Known Allergies (Unverified , 11/26/16) Objective Last 24 Hour Vital Signs Date Time Temp Pulse Resp B/P Pulse Ox O2 Delivery O2 Flow Rate FiO2 12/01/16 12:00 96.8 74 20 104/60 96 Room Air 12/01/16 08:00 96.4 72 20 97/58 99 Room Air 12/01/16 08:00 97.4 72 18 97/58 99 Room Air 12/01/16 07:51 71 16 Room Air 12/01/16 04:10 98.8 63 17 102/52 94 Room Air 12/01/16 00:16 98.5 68 18 106/57 97 Room Air 11/30/16 20:39 81 16 Room Air 11/30/16 20:00 98.1 87 21 138/76 98 Room Air Intake and Output 11/30/16 12/01/16 19:00 07:00 Intake Total 490 ml 980 ml Output Total 400 ml 980 ml Balance 90 ml 0 ml Intake Oral 240 ml 380 ml IV Total 250 ml 600 ml Output Urine Total 400 ml 980 ml # Voids 1 # Bowel Movements 2 General Appearance: no acute distress HEENT: normocephalic, atraumatic, PERRL Respiratory/Chest: chest wall non-tender, decreased breath sounds, accessory muscle use Breasts: no masses Cardiovascular: normal peripheral pulses, normal rate, regular rhythm, no JVD Abdomen: normal bowel sounds, soft, non tender, no organomegaly Genitourinary: normal external genitalia Extremities: no cyanosis Skin: rash, lesions 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: responsive, abnormal CN, motor weakness, disoriented, aphasia Current Medications Medications (Trade) Dose Ordered Sig/Valdez Route PRN Reason Start Time Stop Time Status Last Admin Dose Admin Acetaminophen (Tylenol) 650 mg Q4H PRN ORAL fever 11/26/16 21:45 12/26/16 21:44 Al Hydroxide/Mg Hydroxide (Mylanta II) 30 ml Q6H PRN ORAL dyspepsia 2/7/17 21:45 12/26/16 21:44 Albuterol/ Ipratropium (DuoNeb 0.5-3(2.5)mg/3ml) 3 ml Q4H PRN HHN Shortness of Breath 11/26/16 21:45 12/01/16 21:44 Clonidine HCl (Catapres) 0.1 mg Q4H PRN ORAL For SBP>160 11/26/16 21:45 12/26/16 21:44 Dextrose (Dextrose 50%) STAT PRN IV Hypoglycemia 11/26/16 21:45 12/26/16 21:44 Dextrose/ Electrolytes (D5 0.45%NS w/ KCl 40meq 1000ml) 1,000 ml @ 50 mls/hr Q20H IV 11/30/16 17:50 12/30/16 17:49 12/01/16 12:59 Heparin Sodium (Porcine) (Heparin 5000 units/ml) 5,000 units EVERY 12 HOURS SUBQ 11/27/16 09:00 12/27/16 08:59 11/29/16 21:25 Lorazepam (Ativan 2mg/ml 1ml) 0.5 mg Q4H PRN IV For Anxiety 11/26/16 21:45 12/03/16 21:44 Morphine Sulfate (Morphine Sulfate) 1 mg Q4H PRN IVP For Pain 711/26/16 21:45 12/03/16 21:44 Nitroglycerin (Ntg) 0.4 mg Q5M X 3 DOSES PRN SL Prn Chest Pain 11/26/16 21:45 12/26/16 21:44 Ondansetron HCl (Zofran) 4 mg Q6H PRN IVP Nausea & Vomiting 11/26/16 21:45 12/26/16 21:44 Polyethylene Glycol (Miralax) 17 gm HSPRN PRN ORAL Constipation 11/26/16 21:45 12/26/16 21:44 Promethazine HCl/ Codeine 5 ml 5 ml Q4H PRN ORAL For Cough 11/26/16 21:45 12/26/16 21:44 Temazepam (Restoril) 15 mg HSPRN PRN ORAL Insomnia 11/26/16 21:45 12/03/16 21:44 RONN PALMER Dec 01, 2016 16:23
[2016-12-01 16:33] VITALS: BP 125/70
[2016-12-01 20:00] VITALS: BP 137/72
[2016-12-02] VITALS: BP 120/72
[2016-12-02 04:00] VITALS: BP 126/66
[2016-12-02] MEDS: D5 1/2NS w/KCl 40meq 1000ml 1,000 ML IV SCH (06:34)
[2016-12-02 08:14] VITALS: BP 141/96
[2016-12-02] MEDS: Heparin 5000 units/ml inj SUBQ SCH (08:26)
[2016-12-02 12:59] VITALS: BP 117/68
[2016-12-02 16:14] VITALS: BP 134/86
[2016-12-02] MEDS ORDERED: TYLENOL EXTRA500 MG ORAL (16:43)
[2016-12-02] MEDS ORDERED: TYLENOL650 MG/20. ORAL (16:43)
[2016-12-02] MEDS ORDERED: MYLANTA II30 ML ORAL (16:45)
[2016-12-02] MEDS ORDERED: CLONIDINE HCL0.1 MG PO (16:46)
[2016-12-02] MEDS ORDERED: PROMETHAZINE-C118 M1 ORAL (16:47)
[2016-12-02] MEDS ORDERED: HEPARIN SO5000 UNIT2 SUBQ (16:49)
[2016-12-02] MEDS ORDERED: LORAZEPAM2 MG/1 M3 IV ×2 (16:50→16:52)
[2016-12-02] MEDS ORDERED: MORPHINE SU2 MG/1 M1 IV (16:53)
[2016-12-02] MEDS ORDERED: NITROSTAT0.4 M1 SL (16:54)
[2016-12-02] MEDS ORDERED: ZOFRAN 4 MG4 MG/2 ML IVPB (16:55)
[2016-12-02] MEDS ORDERED: RESTORIL15 MG ORAL (16:56)
[2016-12-02] MEDS ORDERED: MIRALAX17 G2 ORAL (16:56)
--- NOTE | 2016-12-02 17:42 | Pulmonology Progress Note ---
Assessment/Plan Problems: (1) Acute encephalopathy (2) Sepsis (3) UTI (urinary tract infection) (4) Dementia (5) Diabetes mellitus Assessment/Plan Assessment/Plan iv antibiotics sliding scale diabetic diet dvt prophylaxis check urine and blood cultures. Subjective ROS Limited/Unobtainable: Yes Constitutional: Reports: anorexia, chills, fatigue Neurologic: Reports: confusion, weakness Allergies: Coded Allergies: No Known Allergies (Unverified , 11/26/16) Objective Last 24 Hour Vital Signs Date Time Temp Pulse Resp B/P Pulse Ox O2 Delivery O2 Flow Rate FiO2 12/02/16 16:14 97.5 84 22 134/86 97 Room Air 12/02/16 12:59 97.0 77 18 117/68 96 Room Air 12/02/16 08:20 80 18 Room Air 12/02/16 08:14 98.2 91 16 141/96 99 Room Air 12/02/16 04:00 97.2 69 18 126/66 97 Room Air 12/02/16 00:00 97.9 74 18 120/72 96 Room Air 12/01/16 20:00 98.1 83 19 137/72 96 Room Air 12/01/16 19:55 76 16 Room Air Intake and Output 12/01/16 12/02/16 19:00 07:00 Intake Total 1170 ml 718 ml Output Total 1850 ml Balance 1170 ml -1132 ml Intake Oral 720 ml 118 ml IV Total 450 ml 600 ml Output Urine Total 1850 ml # Voids 1 General Appearance: no acute distress HEENT: normocephalic, atraumatic, PERRL Respiratory/Chest: chest wall non-tender, decreased breath sounds, accessory muscle use Breasts: no masses Cardiovascular: normal peripheral pulses, normal rate, regular rhythm, no JVD Abdomen: normal bowel sounds, soft, non tender, no organomegaly, non distended Genitourinary: normal external genitalia Skin: rash, lesions 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
--- NOTE | 2016-12-03 12:56 | Cardiology Report ---
APPROVED REPORT EKG Measurement Heart [id number] Sinus tachycardia Otherwise normal ECG
--- NOTE | 2016-12-03 13:17 | Discharge Summary ---
Discharge Summary Hospital Course Date of Admission Nov 26, 2016 at 19:57 Date of Discharge Dec 02, 2016 at 17:35 Admitting Diagnosis AMS, uti HPI An C Dalton is a 76 year old female who was admitted on Nov 26, 2016 at 19:57 for Altered Mental Status,Urinary Tract Infection Hospital Course dc summary dictated # [id number] Discharge Medications Continued Medications: Acetaminophen (Acetaminophen) 650 Mg/20.3 Ml Solution 650 MG ORAL Q4HR PRN for Prn Headache/Temp > 101, ML 0 Refills Al Hydroxide/mg Hydroxide (Mag-Al Plus Suspension) 30 Ml Oral.susp 30 ML ORAL Q6HR, ML dyspepsia Clonidine Hcl (Clonidine Hcl) 0.1 Mg Tablet 0.1 MG PO Q4HR PRN for For High Blood Pressure, TAB for SBP>160 Codeine/Promethazine Hcl* (Promethazine-Codeine Syrup*) 118 Ml Syrup 5 ML ORAL Q4H PRN for For Cough, ML 0 Refills Heparin Sod (Porcine) (Heparin Sodium*) 5 000/1 Ml Vial 5000 UNITS SUBQ EVERY 12 HOURS, VIAL Lorazepam (Lorazepam) 2 Mg/1 Ml Syringe 0.5 MG IV Q4H for For Anxiety, EA Morphine Sulfate (Morphine Sulfate) 2 Mg/1 Ml Syringe 1 MG IV Q4HR for Severe Pain (Pain Scale 7-10) Nitroglycerin (Nitrostat) 0.4 Mg Tab.subl 0.4 MG SL Q5M X3 DOSES PRN for CHEST PAIN, #25 TAB 0 Refills Ondansetron* (Zofran*) 4 Mg/2 Ml Vial 4 MG IVPB Q6H PRN for Nausea & Vomiting, VIAL Polyethylene Glycol 3350* (Miralax*) 17 Gm Powd.pack 17 GM ORAL DAILY for Constipation, PACKET Temazepam* (Restoril*) 15 Mg Capsule 15 MG ORAL BEDTIME PRN for Insomnia, CAP Discharge Condition Upon Discharge: stable Discharge Disposition Patient was discharged to SNF/Subacute Facility(03) Discharge Diagnoses: Discharge Instructions Discharge Instructions Special Instructions I have been assigned to complete a D/C Summary on this account. I was not involved in the patient management Patty Paulino NP ([facility]) Dec 03, 2016 13:17
--- NOTE | 2016-12-04 02:59 | Discharge Summary 2 SIG ---
DATE OF ADMISSION: 11/26/2016 DATE OF DISCHARGE: 12/02/2016 REASON FOR HOSPITALIZATION: A 76-year-old female, presented for evaluation of altered mental status from [facility]. Per [facility] information, the patient was more altered than usually since that morning. Upon arrival, the patient was unable to provide any information. There was no reported fever or chills from the [facility]. No reported chest pain or shortness of breath. No reported nausea or vomiting. In the emergency department, the patient was placed on monitor. Vital signs were stable. IV fluids started. EKG, chest x-ray, blood culture, UA, and CT of the head done. Electrolytes were stable. No leukocytosis, troponin negative, UA was grossly positive for urinary tract infection. Chest x-ray revealed no acute cardiopulmonary process. CT of the head revealed no acute intracranial pathology, but atrophy with ventriculomegaly unable to rule out normal pressure hydrocephalus. EKG revealed normal sinus rhythm. No ischemic changes. The patient started on empiric antibiotics and transferred to Med/Surg for further management. ADMITTING DIAGNOSES: 1. Encephalopathy. 2. Possible sepsis. 3. Urinary tract infection. 4. Dementia. HOSPITAL STAY: The patient admitted to the hospital. The patient was on IV fluids for hydration and antibiotics. Urine culture grew E. coli. Blood culture 10/23 was positive for Staph coag-negative, likely contamination. The patient was afebrile, no leukocytosis . Patient completed treatment for UTI while in the hospital. Echocardiogram revealed preserved ejection fracture of 60% to 65%. No left ventricular hypertrophy. Carotid duplex was negative. Venous duplex of bilateral lower extremities was negative. Electrolytes stable. Troponin negative. No evidence of arrhythmia. Acute change in the level of consciousness likely was brought by infection. The patient also had underlying advanced senile dementia. Hypokalemia was addressed, potassium replaced and stable. Blood sugar was managed with sliding scale of insulin , stable. DVT prophylaxis provided. Bowel regimen instituted. The patient was stable for discharge to [facility]. DISCHARGE MEDICATIONS: 1. Acute metabolic encephalopathy secondary to urinary tract infection. 2. Possible sepsis. 3. Urinary tract infection/Escherichia coli. 4. Diabetes mellitus. 5. Advanced senile dementia. 6. Hypokalemia. DISCHARGE MEDICATIONS: See medication reconciliation list. DISCHARGE INSTRUCTIONS: The patient discharged to [facility] facility. Follow up with medical doctor at the facility. Demetrius Mckeon M.D. I have been assigned to dictate discharge summary on this account and I was not involved in the patient's management. Patty Paulino N.P. ([facility]) DR: TERESA JOB#: [id number] CC: [id number]
== END 2016-12-02 17:35 | DRG 871 ==
LOC: EDBD 18:47 → EMR 19:30 → 4W 19:57 → EMR 22:45 → EDBEDREQ 23:46 → 4W 11-29 06:19
DX: A41.9 Sepsis, unspecified organism (principal); G93.41 Metabolic encephalopathy; G91.2 (Idiopathic) normal pressure hydrocephalus; N39.0 Urinary tract infection, site not specified; F03.90 Unspecified dementia, unspecified severity, without behavioral disturbance, psychotic disturbance, mood disturbance, and anxiety; E11.9 Type 2 diabetes mellitus without complications; B96.20 Unspecified Escherichia coli [E. coli] as the cause of diseases classified elsewhere; I10 Essential (primary) hypertension; E87.6 Hypokalemia
CPT/HCPCS: 36415; 70450; 71010; 80048; 80053; 80061; 81003; 82550; 82553; 82962; 83605; 84443; 84484; 85025; 85610; 85730; 87040; 87086; 87181; 93005; 93306; 93880; 93970; 94664